=== PATIENT | female | born 1965 | race Caucasian/White ===

== ENCOUNTER 2021-07-13 09:06 | Day surgery (SDC) | payer MEDICAID ==
[~2021-07-13 09:06] MED LIST: Acetaminophen 325 MG Tab PO SCH; Ketamine 500 mg/10 ML MDV ONE; Lactated Ringers 1,000 ML IV SCH; Lidocaine 1%/Sod Bicarbonate in NS 8.4% 1 ML Syringe IDERM PRN; Midazolam 1 MG/ML 2 ML SDV ONE; Morphine 8 MG, EPINEPHrine 0.3 MG, Cefuroxime 750 MG, Ketorolac 30 MG, Sodium Chloride ... PRN; Ondansetron 4 MG/2 ML SDV ONE; Pregabalin 25 MG Cap PO SCH; Propofol 200 MG/20 ML SDV ONE; Rocuronium 50 MG/5 ML Vial ONE; Sodium Chloride 0.9% 10 ML Syringe FLUSH PRN; ceFAZolin 1 GM Vial ONE; fentaNYL 250 MCG/5 ML SDV ONE; oxyCODONE ER 10 MG TAB.ER PO SCH
[2021-07-13] MEDS ORDERED: LORazepam 2 MG/ML SDV IVPUSH STA (09:29)
[2021-07-13] MEDS ORDERED: Lidocaine 1% 4 ML ONE (10:21)
--- NOTE | 2021-07-13 10:34 | CR ---
Addendum: Repeat chest x-ray was obtained. PICC line has been advanced and now lies within the superior vena cava in satisfactory position. Slight atelectasis remains within the left lung base. --- Addendum1 above dictated on [07/13/2021 11:54] by [Sha Baumann, Nolan Madsen] --- --- Addendum1 above signed on [07/13/2021 11:55] by [Sha Baumann Hilton J.] --- --- Original report below dictated on [07/13/2021 10:30] by [Sha Baumann, Nolan Madsen] --- --- Original report below signed on [07/13/2021 10:31] by [Sha Baumann, Nolan Madsen] --- Chest: Portable view of the chest was obtained. Comparison: No prior chest imaging is available. Right-sided PICC line is seen. PICC line is located at the junction of the brachiocephalic and superior vena cava. There appears to be a small guidewire placed distal to the catheter. Recommend advancement of the catheter by about 4 cm for optimal position. Slight atelectasis is seen within the left lung base. Lungs otherwise are clear. Heart size is normal. Slight tortuosity of the thoracic aorta is seen. Impression: 1. PICC line should be advanced by about 4 cm for optimal position. (This will be relayed to the x-ray department) 2. Mild left basilar atelectasis is also noted. Diagnostic code #3 --- Addendum1 signed ---
--- NOTE | 2021-07-13 10:38 | PCM.PREANE ---
Preanesthetic Assessment - Anesthesia/Transfusion/Family Hx Anesthesia History: Prior Anesthesia Without Reaction Family History of Anesthesia Reaction: No Transfusion History: No Prior Transfusion(s) Intubation History: Unknown - Review of Systems General: No Symptoms Pulmonary: No Symptoms, Other (former smoker) Cardiovascular: Other (HTN) Neurological: No Symptoms Other: Reports: None - Physical Assessment NPO Status Date: 07/12/21 Vital Signs: Last Vital Signs Temp 36.7 C 07/13/21 09:10 Pulse 70 07/13/21 09:10 Resp 16 07/13/21 09:10 BP 128/90 07/13/21 09:10 Pulse Ox 100 07/13/21 09:10 ASA Class: 2 Mental Status: Alert & Oriented x3 Airway Class: Mallampati = 2 Dentition: Reports: Dentures, Edentulous Thyro-Mental Finger Breadths: 3 Mouth Opening Finger Breadths: 3 ROM/Head Extension: Full Lungs: Clear to Auscultation, Normal Respiratory Effort Cardiovascular: Regular Rate, Regular Rhythm - Lab Values: Laboratory Last Values APTT 28.5 SECONDS (21.7-31.4) 07/13/21 09:23 - Imaging/EKG Impressions: nsr at 67 - Allergies Allergies/Adverse Reactions: Allergies Allergy/AdvReac Type Severity Reaction Status Date / Time No Known Allergies Allergy Verified 07/12/21 14:27 - Blood Blood Available: No Product(s) Available: None - Anesthesia Plan Pre-Op Medication Ordered: None Beta Tala: Metoprolol Med Last Dose Date: 07/13/21 Med Last Dose Time: 06:30 - Acknowledgements Anesthesia Type Planned: General Anesthesia Pt an Appropriate Candidate for the Planned Anesthesia: Yes Alternatives and Risks of Anesthesia Discussed w Pt/Guardian: Yes Pt/Guardian Understands and Agrees with Anesthesia Plan: Yes PreAnesthesia Questionnaire - Past Health History Medical/Surgical History: Denies Medical/Surgical History HEENT History: Reports: Impaired Vision, Other (See Below) Other HEENT History: wears glasses/contacts, has top & bottom dentures Cardiovascular History: Reports: Hypertension Other Cardiovascular History: 1 episode of A-fib approx 2 years ago Respiratory History: Reports: None Gastrointestinal History: Reports: Hepatitis Genitourinary History: Reports: None [employer] SPECIALIST History: Reports: None Musculoskeletal History: Reports: Arthritis Neurological History: Reports: None Psychiatric History: Reports: None Endocrine/Metabolic History: Reports: Obesity/BMI 30+ Hematologic History: Reports: None Immunologic History: Reports: None Oncologic (Cancer) History: Reports: None Dermatologic History: Reports: None - Infectious Disease History Infectious Disease History: Reports: Novel Coronavirus - Past Surgical History Head Surgeries/Procedures: Reports: None HEENT Surgical History: Reports: Oral Surgery, Tonsillectomy Cardiovascular Surgical History: Reports: None Respiratory Surgical History: Reports: None GI Surgical History: Reports: None Female Surgical History: Reports: Other (See Below) Other Female Surgeries/Procedures: hx of diagnostic laparoscopy Endocrine Surgical History: Reports: None Neurological Surgical History: Reports: None Musculoskeletal Surgical History: Reports: Arthroscopic Knee, Other (See Below) Other Musculoskeletal Surgeries/Procedures:: R total knee Oncologic Surgical History: Reports: None Dermatological Surgical History: Reports: None - SUBSTANCE USE Tobacco Use Status *Q: Former Tobacco User Days Per Week of Alcohol Use: 1 Recreational Drug Use History: No - HOME MEDS Home Medications: Home Meds Metoprolol Succinate 100 mg PO DAILY 09/09/20 [History] Acetaminophen [Tylenol] 650 mg PO DAILY 07/12/21 [History] Aspirin [Aspirin EC] 325 mg PO BID #84 tab 07/12/21 [Rx] Cyclobenzaprine [Flexeril] 10 mg PO BID PRN #20 tab 07/12/21 [Rx] Multivitamin 1 tab PO DAILY 07/12/21 [History] oxyCODONE 5 - 10 mg PO Q4H PRN #40 tab 07/12/21 [Rx] - CURRENT (IN HOUSE) MEDS Current Meds: Current Medications Acetaminophen (Acetaminophen 325 Mg Tab) 975 mg PO ONETIME DIANA Stop: 07/13/21 15:00 Lactated Ringer's (Ringers, Lactated) 1,000 mls @ 125 mls/hr IV ASDIRECTED DIANA Stop: 07/13/21 23:00 Lidocaine/Sodium Bicarbonate (Lidocaine 1%/Sod Bicarbonate In Ns 8.4% 1 Ml Syringe) 0.25 ml IDERM ONETIME PRN PRN Reason: Prior to IV Start Stop: 07/13/21 18:00 Oxycodone HCl (Oxycodone Er 10 Mg Tab.Er) 10 mg PO ONETIME DIANA Stop: 07/13/21 15:00 Pregabalin (Pregabalin 25 Mg Cap) 50 mg PO ONETIME DIANA Stop: 07/13/21 15:00 Sodium Chloride (Sodium Chloride 0.9% 10 Ml Syringe) 10 ml FLUSH ASDIRECTED PRN PRN Reason: Keep Vein Open Stop: 07/13/21 18:00 Discontinued Medications Cefazolin Sodium (Cefazolin 1 Gm Vial) Confirm Administered Dose 2 gm .ROUTE .STK-MED ONE Stop: 07/13/21 08:24 Fentanyl (Fentanyl 250 Mcg/5 Ml Sdv) Confirm Administered Dose 250 mcg .ROUTE .STK-MED ONE Stop: 07/13/21 08:25 Lidocaine HCl (Xylocaine-Mpf 1%) Confirm Administered Dose 4 mls @ as directed .ROUTE .STK-MED ONE Stop: 07/13/21 10:22 Ketamine HCl (Ketamine 500 Mg/10 Ml Mdv) Confirm Administered Dose 500 mg .ROUTE .STK-MED ONE Stop: 07/13/21 08:25 Lorazepam (Lorazepam 2 Mg/Ml Sdv) 0.5 mg IVPUSH STAT STA Stop: 07/13/21 09:30 Midazolam HCl (Midazolam 1 Mg/Ml 2 Ml Sdv) Confirm Administered Dose 2 mg .ROUTE .STK-MED ONE Stop: 07/13/21 08:25 Ondansetron HCl (Ondansetron 4 Mg/2 Ml Sdv) Confirm Administered Dose 4 mg .ROUTE .STK-MED ONE Stop: 07/13/21 08:24 Propofol (Propofol 200 Mg/20 Ml Sdv) Confirm Administered Dose 200 mg .ROUTE .STK-MED ONE Stop: 07/13/21 08:24 Rocuronium [place] (Rocuronium 50 Mg/5 Ml Vial) Confirm Administered Dose 50 mg .ROUTE .STK-MED ONE Stop: 07/13/21 08:24
[2021-07-13] MEDS ORDERED: Vancomycin 1 GM SDV ONE ×3 (10:49→12:59)
[2021-07-13] MEDS ORDERED: Lactated Ringers 1,000 ML ONE (11:39)
[2021-07-13] MEDS ORDERED: Dexamethasone 4 MG/ML 5 ML MDV ONE ×2 (11:39→14:22)
--- NOTE | 2021-07-13 11:41 | PCM.SN.2 ---
- Free Text/Narrative Note: PICC Line Insertion Date: 07/13/2021 Start: 0940 Stop: [address] Pena for PICC placement for long goods drier antibiotic use. Chart reviewed. Patient educated and agrees to proceed. Consent signed. Site cleansed with ChloraPrep. Right arm prepped with chloraprep x 3. Lidocaine 1% local anesthetic injected prior to 20ga IV catheter insertion. Sterile gown, gloves and drape used. 4fr Groshong NXT ClearVue PICC inserted in the Right arm at 47 cm at the skin per sterile technique. Secured with statlock. Flushes well with NaCl with good blood return. Dressed with transparent dressing with CHG. PICC catheter remains out for measurement purposes. Chest Xray taken. Confirmation pending per radiology. Nayan Kim CRNA
[2021-07-13] MEDS ORDERED: fentaNYL 100 MCG/2 ML SDV IVPUSH PRN (11:50)
[2021-07-13] MEDS ORDERED: Ondansetron 4 MG/2 ML SDV IVPUSH PRN (11:50)
[2021-07-13] MEDS ORDERED: HYDROmorphone 0.5 MG/0.5 ML Syringe IVPUSH PRN (11:50)
[2021-07-13] MEDS ORDERED: ePHEDrine 50 MG/ML SDV ONE (11:55)
[2021-07-13] MEDS ORDERED: HYDROmorphone 0.5 MG/0.5 ML Syringe ONE ×3 (12:05→12:46)
[2021-07-13] MEDS: Vancomycin 1 GM SDV ONE ×2 (13:15→13:20)
--- NOTE | 2021-07-13 14:05 | PCM.POSTAN ---
POST ANESTHESIA ASSESSMENT - MENTAL STATUS Mental Status: Alert, Oriented - VITAL SIGNS Vital Signs: Last Vital Signs Temp 36.7 C 07/13/21 09:10 Pulse 70 07/13/21 09:10 Resp 16 07/13/21 09:10 BP 128/90 07/13/21 09:10 Pulse Ox 100 07/13/21 09:10 - RESPIRATORY Respiratory Status: Respiratory Rate WNL, Airway Patent, O2 Saturation Stable, Supplemental Oxygen - CARDIOVASCULAR CV Status: Pulse Rate WNL, Blood Pressure Stable - GASTROINTESTINAL GI Status: No Symptoms - PAIN Pain Score: 0 - POST OP HYDRATION Hydration Status: Adequate & Stable
[2021-07-13] MEDS ORDERED: Dexmedetomidine 200 MCG/2 ML SDV ONE (14:13)
[2021-07-13] MEDS ORDERED: Ropivacaine 0.5% 5 MG/ML 30 ML SDV ONE (14:18)
--- NOTE | 2021-07-13 14:57 | PCM.PRNOTE ---
- Free Text/Narrative Note: Postoperative regional pain control requested by surgeon. Surgery: Rt knee explant of previous total joint prosthesis with application of spacers Procedure: Rt Femoral nerve block with U/S guidance. Requesting surgeon: Dr. Bhavik Coreas Risks and benefits discussed with the patient preoperatively, including Rt. leg weakness x 24 hrs., block failure, groin pain. Permit signed. Patient in PACU postoperatively after general anesthesia, complaining on severe pain, stable , alert and awake. Time out performed. Oxygen 3L via NC. Right groin area was prepped with Chloraprep x 1 and allowed to dry. Local infiltration with 2 cc of 1% Lidocaine. The right femoral nerve and artery were identified under ultrasound prior to needle insertion. 4" Stimuplex needle #20 G was inserted under US guidance. Needle penetration through fascia norma and fascia iliaca observed. Nerve stimulation not utilized.. Under direct visualization of needle tip the injection of 0.5% Ropivacaine with 1:200,000 epinephrine (25mls) , 13 ml of 1% Lidocaine with added 8 mg of Dexamethasone and 40 mcg of Dexmedetomidine, total of 40 mls in divided doses maintaining negative aspiration was completed around the femoral nerve without problems. No local anesthetic toxicity was noted. Patient is awake, stable and tolerated the procedure well. Please see the attached U/S images Time: 14:35 - 14:45
[2021-07-13] MEDS ORDERED: Lidocaine 2% with EPINEPHrine 1:200,000 20 ML SDV ONE (15:27)
--- NOTE | 2021-07-13 15:49 | CR ---
Right knee: Supine portable AP and crosstable lateral views of the right hip were obtained. Comparison: No prior knee exam is available. Findings: Multiple presumed antibiotic beads are noted. Knee prosthesis is seen. Patellar prosthesis is noted. Soft tissue air is noted. No discrete bony abnormality is appreciated. Impression: 1. Satisfactory radiographic appearance of recently placed right knee prostheses. 2. Presumed antibiotic beads are present. Diagnostic code #2
[2021-07-14] MEDS ORDERED: Acetaminophen 325 MG Tab PO ONE (03:04)
[2021-07-14] MEDS ORDERED: oxyCODONE 5 MG Tab PO ONE ×2 (07:15→10:53)
--- NOTE | 2021-08-01 19:59 | PCM.OPNOTE ---
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
--- NOTE | 2021-08-02 07:35 | OR ---
DATE OF OPERATION: 07/13/2021 SURGEON: Bhavik Pena MD OPERATION PERFORMED: Explant, right total knee arthroplasty with antibiotic beads and antibiotic spacer. PREOPERATIVE DIAGNOSIS: Chronic infected right total knee arthroplasty. POSTOPERATIVE DIAGNOSIS: Chronic infected right total knee arthroplasty. ANESTHESIA: Local MAC, regional block, and spinal. ANESTHESIA PROVIDER: Sheba Serrano. ASSISTANTS: Mami Cespedes PA-C, and Rachel Ruiz LPN. ESTIMATED BLOOD LOSS: 5 mL. COMPLICATIONS: None. CONDITION: Stable. DESCRIPTION OF PROCEDURE: The patient was identified in the preoperative holding area. The proper site was marked and identified by the surgeon. The patient was taken back to the operating theater, where after adequate anesthesia the patient's right lower extremity had a nonsterile tourniquet applied and was then sterilely prepped and draped in the usual sterile fashion. OR time-out was performed. The patient received antibiotics after cultures were taken. At this time, the right lower extremity was exsanguinated, and the tourniquet was insufflated to 250 mmHg. The previous incision was utilized, and a medial parapatellar arthrotomy was created. There was noted to be a large amount of fluid as well as biofilm over the implants. The implants were noted to be grossly loose. At this time, a complete synovectomy was performed in the suprapatellar pouch all the way inferiorly and once the explant of the 2 components was done even posteriorly going back to good healthy tissue. At this time, it was noted that the implants were grossly loose, so they were just removed very easily with an osteotome and a tamp. The bone itself was then curetted and rongeured of any gross purulence and biofilm. Once this happened, we mixed 1 g vancomycin and 1 g tobramycin per batch of cement, and we cemented in an all-polyethylene spacer that formed an articulating-type spacer on the femoral side. Once this was completed, we also did beads in the medial and lateral gutters. It was irrigated with 1 L pulse lavage irrigation with Ancef as well as Aricept. A #2 barbed suture was used for closure of the medial parapatellar arthrotomy. 2-0 Vicryl was used subcutaneously. Prineo was used for skin closure. The patient was placed in a knee immobilizer and a sterile soft dressing and was sent to the PACU in stable condition. We will begin IV antibiotics. Please note that at the very beginning of the case, multiple cultures of tissue as well as sloughs were taken and sent for specimen. MMODAL /[id number]
== END 2021-07-14 12:35 | disposition home or self-care (01) ==
LOC: JD.SDS 09:06 → JD.MS 16:15 → JD.SDS 07-14 12:35
PROVIDERS: ATTEND Orthopaedic Surgery
DX: T84.53XA Infection and inflammatory reaction due to internal right knee prosthesis, initial encounter (principal); Z79.899 Other long term (current) drug therapy; Z87.891 Personal history of nicotine dependence; Z98.890 Other specified postprocedural states; G89.29 Other chronic pain; I10 Essential (primary) hypertension
CPT/HCPCS: 20680; 36415; 71045; 73560; 85730; 87070; 87075; 87077; 87186; 87205; 97116; 97161; 97530; A9270; C1713; C1751; J0690; J1100; J1170; J2060; J2250; J2370; J2405; J2704; J2710; J2795; J3010; J3260; J3370; J7120; 01402; 36569; 64447; 76942; C1776

== ENCOUNTER 2021-10-12 06:36 | Day surgery (SDC) | payer MEDICAID, OTHER ==
[~2021-10-12 06:36] MED LIST changes: -Ketamine 500 mg/10 ML MDV ONE; +Lidocaine 1% 5 ML VIAL ONE; -Morphine 8 MG, EPINEPHrine 0.3 MG, Cefuroxime 750 MG, Ketorolac 30 MG, Sodium Chloride ... PRN; -Ondansetron 4 MG/2 ML SDV ONE; -Rocuronium 50 MG/5 ML Vial ONE; -Sodium Chloride 0.9% 10 ML Syringe FLUSH PRN; -fentaNYL 250 MCG/5 ML SDV ONE
[2021-10-12] MEDS ORDERED: Lidocaine 1% 5 ML VIAL ONE (07:28)
[2021-10-12] MEDS ORDERED: fentaNYL 100 MCG/2 ML SDV ONE ×2 (07:30→10:11)
[2021-10-12] MEDS ORDERED: Midazolam 1 MG/ML 2 ML SDV ONE (07:32)
[2021-10-12] MEDS ORDERED: ePHEDrine 50 MG/ML SDV ONE (08:11)
[2021-10-12] MEDS ORDERED: fentaNYL 100 MCG/2 ML SDV IVPUSH PRN (08:22)
[2021-10-12] MEDS ORDERED: Ondansetron 4 MG/2 ML SDV IVPUSH PRN (08:22)
[2021-10-12] MEDS ORDERED: Propofol 200 MG/20 ML SDV ONE ×3 (08:33→09:42)
[2021-10-12] MEDS: Morphine 8 MG, EPINEPHrine 0.3 MG, Cefuroxime 750 MG, Ketorolac 30 MG, Sodium Chloride ... PRN ×10 (08:59→09:34)
[2021-10-12] MEDS: Vancomycin 1 GM SDV ONE ×2 (08:59→09:47)
[2021-10-12] MEDS: HYDROmorphone 0.5 MG/0.5 ML Syringe IVPUSH PRN ×2 (10:28→10:38)
[2021-10-12] MEDS ORDERED: Ropivacaine 0.5% 5 MG/ML 30 ML SDV ONE (10:39)
[2021-10-12] MEDS ORDERED: EPINEPHrine 1 MG/ML SDV ONE (10:39)
[2021-10-12] MEDS ORDERED: Cyclobenzaprine 10 MG Tab PO PRN (10:40)
[2021-10-12] MEDS ORDERED: oxyCODONE 5 MG Tab PO PRN (10:40)
[2021-10-12] MEDS ORDERED: Lactated Ringers 1,000 ML ONE (10:52)
== END 2021-10-12 15:03 | disposition home or self-care (01) ==
LOC: JD.SDS 06:36
PROVIDERS: ATTEND Orthopaedic Surgery
DX: T84.53XA Infection and inflammatory reaction due to internal right knee prosthesis, initial encounter (principal); T84.82XA Fibrosis due to internal orthopedic prosthetic devices, implants and grafts, initial encounter; I10 Essential (primary) hypertension; Z79.82 Long term (current) use of aspirin; Z79.899 Other long term (current) drug therapy
CPT/HCPCS: 27487; 36415; 73560; 85610; 85730; 87070; 87075; 87205; 97110; 97116; 97161; A9270; C1713; C1776; J0171; J0690; J0697; J1170; J1885; J2250; J2270; J2704; J2795; J3010; J3370; J7120; 01402; 64447; 76942

== ENCOUNTER 2022-01-11 09:50 | Day surgery (SDC) | payer MEDICAID ==
[~2022-01-11 09:50] MED LIST changes: -Acetaminophen 325 MG Tab PO SCH; +EPINEPHrine 1 MG/ML SDV ONE; -Pregabalin 25 MG Cap PO SCH; +Ropivacaine 0.5% 5 MG/ML 30 ML SDV ONE; +Sodium Chloride 0.9% 10 ML Syringe FLUSH PRN; +Sodium Chloride 0.9% 10 ML Syringe FLUSH SCH; -ceFAZolin 1 GM Vial ONE; +fentaNYL 100 MCG/2 ML SDV ONE; -oxyCODONE ER 10 MG TAB.ER PO SCH
[2022-01-11] MEDS ORDERED: ceFAZolin 1 GM Vial ONE (10:15)
[2022-01-11] MEDS ORDERED: Ondansetron 4 MG/2 ML SDV IVPUSH PRN (10:19)
[2022-01-11] MEDS ORDERED: fentaNYL 100 MCG/2 ML SDV IVPUSH PRN (10:19)
[2022-01-11] MEDS ORDERED: HYDROmorphone 0.5 MG/0.5 ML Syringe IVPUSH PRN (10:19)
[2022-01-11] MEDS ORDERED: Bupivacaine 0.25% 10 ML SDV ONE (10:23)
[2022-01-11] MEDS ORDERED: Lidocaine 1% 50 ML MDV ONE (10:24)
[2022-01-11] MEDS ORDERED: Midazolam 1 MG/ML 2 ML SDV ONE (10:53)
[2022-01-11] MEDS ORDERED: Propofol 200 MG/20 ML SDV ONE (10:56)
[2022-01-11] MEDS ORDERED: fentaNYL 100 MCG/2 ML SDV ONE ×2 (11:09→11:38)
[2022-01-11] MEDS ORDERED: Cyclobenzaprine 10 MG Tab PO ONE (11:59)
[2022-01-11] MEDS ORDERED: traMADol 50 MG Tab PO PRN (11:59)
== END 2022-01-11 13:57 | disposition home or self-care (01) ==
LOC: JD.SDS 09:50
PROVIDERS: ATTEND Orthopaedic Surgery
DX: T81.41XA Infection following a procedure, superficial incisional surgical site, initial encounter (principal); M24.661 Ankylosis, right knee; I10 Essential (primary) hypertension; F32.A Depression, unspecified; F41.9 Anxiety disorder, unspecified; H54.7 Unspecified visual loss; E66.9 Obesity, unspecified; Z68.30 Body mass index [BMI] 30.0-30.9, adult; Z96.651 Presence of right artificial knee joint; Z87.891 Personal history of nicotine dependence; Z79.899 Other long term (current) drug therapy
CPT/HCPCS: 27310; 87641; A9270; J0171; J0690; J1170; J2001; J2250; J2704; J2795; J3010; J3490; J7120; 00400; 64450; 76942